=== PATIENT | male | born 2000 | race Caucasian/White ===

== ENCOUNTER 2021-04-05 09:29 | Emergency (ER) | payer OTHER, SELFPAY ==
--- NOTE | ~2021-04-05 | XR_ITS ---
EXAMINATION: XR CHEST CLINICAL INFORMATION: Shortness of breath. Flu like symptoms. COMPARISON: None TECHNIQUE: 2 views of the chest were obtained. FINDINGS: Cardiac silhouette is normal in size. Mildly hypoinflated lungs. There is no lobar consolidation. No pleural effusion or pneumothorax. No gross osseous abnormality. XR/XR chest 2V IMPRESSION: No acute pulmonary pathology.
--- NOTE | ~2021-04-05 | CT_ITS ---
EXAMINATION: CT SOFT TISSUE NECK WITH CONTRAST CLINICAL INFORMATION: Uvula swelling. Question peritonsillar abscess. COMPARISON: No relevant prior imaging. TECHNIQUE: Following the intravenous administration of 60 mL of Omnipaque 350 intravenous contrast, helical imaging was performed in the axial plane with generation of coronal and sagittal reformatted images. This CT examination was performed using dose optimization techniques as appropriate, variously including the following: *Automated exposure control *Adjustment of mA and/or kV according to patient size (this includes techniques or standardized protocols for targeted exams where dose is matched to indication/reason for exam; i.e. extremities or head) *Use of iterative reconstruction technique DLP: 789 mGy-cm FINDINGS: There is symmetric prominence of the palatine and nasopharyngeal tonsillar tissue. No discrete enhancing mucosal mass. Parapharyngeal and retromaxillary fat is preserved. Pillowcase Maker spaces are symmetric. The parotid and submandibular glands are normal. The tongue base and epiglottis are normal. Preepiglottic fat is preserved. Glottic and subglottic airways are widely patent. The thyroid gland is normal and the remainder of the visualized visceral soft tissues are normal. There are scattered symmetrically distributed albeit nonspecific cervical lymph nodes, none of which demonstrate worrisome enhancement characteristics to suggest capsular invasion or central necrosis. No mediastinal or axillary adenopathy is visualized within the [id number] of this examination. Lung apices are clear. Aortic arch apex is normal. Cervical carotid and vertebral arteries are patent. Internal jugular veins fill symmetrically. There is no acute osseous finding. No worrisome lytic or blastic osseous lesion. Limited visualization of intracranial anatomy reveals no abnormal finding. CT/CT soft tissue neck w con IMPRESSION: There is mild nonspecific prominence of the palatine and nasopharyngeal tonsillar tissue. A few scattered symmetrically prominent albeit nonspecific cervical lymph nodes are visualized within the neck, none of which demonstrate worrisome enhancement characteristics. No identifiable enhancing soft tissue mass or drainable collection.
[2021-04-05 10:33] LABS: Influenza A PCR NEGATIVE (Negative); Influenza B PCR NEGATIVE (Negative); Resp Syncy Virus RNA Qual PCR NEGATIVE (Negative); SARS COV2 PCR INHOUSE NEGATIVE (Negative)
[2021-04-05 10:38] VITALS: BP 140/80; PULSE 79; RESP 14; O2SAT 98; BMI 29.2
[2021-04-05] MEDS: Famotidine/PF 20 MG/2 ML VIAL IVPUSH (11:20)
[2021-04-05 11:21] LABS: MANUAL DIFF FLAG NO
[2021-04-05 11:23] LABS: Basophils Percent Auto 0.2 % (0-2); Eosinophils Absolute Auto 0.1 X10*3/uL (0.0-0.4); Eosinophils Percent Auto 1.2 % (0-4); Hematocrit 46.6 % (42-52); Hemoglobin 15.9 g/dl (14.0-18.0); Imm Gran Abs Auto 0.02 X10*3/uL (0.00-0.03); Imm Gran Pct Auto 0.2 % (0.0-0.4); Lymphocytes Absolute Auto 2.1 X10*3/uL (1.2-4.9); Lymphocytes Percent Auto 25.1 % (20-40); Mean Corpuscular HGB Conc 34.1 g/dl (31.0-36.0); Mean Corpuscular Hemoglobin 29.5 pg (27.0-33.0); Mean Corpuscular Volume 86.5 fL (80-98); Mean Platelet Volume 8.8 fL (9.4-12.4); Monocytes Absolute Auto 0.5 X10*3/uL (0.1-1.2); Monocytes Percent Auto 5.9 % (2-11); Neutrophils Absolute Auto 5.7 X10*3/uL (2.0-8.3); Neutrophils Percent Auto 67.4 % (45-73); Platelet Count 279 X10*3/uL (160-400); Red Blood Count 5.39 X10*6/uL (4.60-5.80); Red Cell Distribution Width 11.7 % (11.0-16.0); White Blood Count 8.5 X10*3/uL (4.8-10.8)
[2021-04-05] MEDS: diphenhydrAMINE HCL 50 MG/ML VIAL 25 MG IVPUSH (11:23)
[2021-04-05] MEDS: dexAMETHasone sod phosphate 10 MG/ML VIAL IVPUSH (11:25)
--- NOTE | 2021-04-05 11:28 | ED_ITS ---
HPI - General Adult General Chief complaint: Upper Respiratory Symptoms Stated complaint: SoB, Flu like Time Seen by Provider: 04/05/21 10:49 Source: patient Mode of arrival: ambulatory Limitations: no limitations History of Present Illness HPI narrative: Patient presents to the ED for sensation of uvula being swollen. Patient states he had throat pain last week that resolved within this morning woke up with his uvula swollen. Patient states having drooling. Patient denies any sore throat, neck swelling, chest pain, fever, chills, coughing, or shortness of breath. Related Data Previous Rx's Medication Instructions Recorded amoxicillin 875 mg-potassium 1 tab PO Q12H 10 Days #20 tab 04/05/21 clavulanate 125 mg tablet (Augmentin) dexamethasone 6 mg tablet 6 mg PO DAILY #7 tab 04/05/21 (Decadron) Allergies Allergy/AdvReac Type Severity Reaction Status Date / Time No Known Allergies Allergy Verified 04/05/21 10:50 Review of Systems Constitutional: Constitutional: Reports as per HPI and Reports no additional constitutional complaints Eyes: Eyes: Reports as per HPI and Reports no additional eye complaints ENT: Reports sore throat (Resolved) Comments: Uvular swelling. Drooling Respiratory: Respiratory: Reports as per HPI and Reports no additional respiratory complaints Gastrointestinal: Gastrointestinal: Reports as per HPI and Reports no additio nal gastrointestinal complaints Musculoskeletal: Musculoskeletal: Reports no additional musculoskeletal complaints and Reports as per HPI Neurologic: Reports system reviewed and no additional complaints, except as do cumented and Reports as per HPI Psychiatric: Psychiatric: Reports no additional psychiatric complaints [facility] Past Medical History Medical History (Updated 04/05/21 @ 15:14 by YAMILKA Alanis) No known health problems Social History Social History Alcohol intake: current Alcohol intake frequency: holidays/special occasions only Patient Tobacco Use Status: Never used Tobacco Use of substances other than those prescribed or required for medical reasons: No Advance Directives: No Advance Directives Information Provided: No Physical Exam Vital Signs: Vital Signs: Last Vital Signs Temp 98.8 F 04/05/21 12:33 Pulse 81 04/05/21 14:14 Resp 16 04/05/21 12:33 BP 112/60 04/05/21 14:14 Pulse Ox 99 04/05/21 14:14 Body Mass Index 29.2 Const: General: cooperative, healthy appearing, comfortable, no acute distress, well developed, alert, awake and Physically active Orientation/consciousness: patient oriented x3 HENMT: Other: Negative for signs of peritonsillar abscess Head: Yes normal to inspection, Yes No palpable skull fracture present, Yes normocephalic, Yes atraumatic and Yes abrasion Throat: Yes posterior oropharynx normal, Yes tonsils normal and Yes uvular edema (Uvula swollen. Patient mildly drooling/spitting) Eyes: General: appearance normal, both eyes and all related structures Neck: Neck: Yes normal visual inspection, Yes full ROM, Yes no lymphadenopathy, Yes no meningeal signs, Yes trachea midline, Yes supple and No tender Chest: Chest palpation & inspection: normal inspection of the chest and normal palpation of entire chest wall Resp: Effort & Inspection: normal respiratory effort and able to speak in complete sentences Auscultation: clear to auscultation bilaterally Cardio: Heart sounds: S1 normal heart sound present and S2 normal heart sound present GI: Inspection: Yes normal to inspection and No abdominal wall ecchymosis Palpation (GI): Soft to palpation, not firm, nontender, no guarding and not rigid : General: No CVA tenderness and Yes no CVA tenderness Back/Spine/Pelvis: Back: no CVA tenderness, No CVA tenderness and No back tenderness Skin: General skin exam: no rashes or lesions noted and elasticity normal Neuro: General: patient oriented x3, gait normal, no meningeal signs and CN's II-XI intact bilaterally Cranial nerves: Yes CN's II-XII intact bilaterally Extrem: General: Yes normal to inspection and Yes full ROM Right lower extremity: normal to inspection Psych: Appearance: grossly normal, well kempt and not disheveled Course Course Course Narrative: History physical exam indicates uvulitis. Negative For signs of peritonsillar abscess. Will order Decadron, Benadryl, and Pepcid. Paitent is mildy drooling and spitting will do next CT a check for retropharyngeal abscess. Reevaluation(s) Reevaluation #1: Patient labs are normal was sent for soft tissue neck CT. Patient given Zosyn for positive strep. Time: 11:17 Reevaluation #2: Soft tissue neck came back negative for any tonsillar abscesses or retropharyngeal abscess. Patient discharged antibiotics and Decadron. Patient states he feels better and no longer drooling and spitting. Patient tolerate p.o. Time: 15:12 Medical Decision Making MDM Narrative Medical decision making narrative: Pharyngitis Lab Data Result diagrams: 04/05/21 11:17 04/05/21 11:17 Labs: Lab Results 04/05/21 04/05/21 04/05/21 Range/Units 11:17 11:17 11:17 WBC 8.5 (4.8-10.8) X10*3/uL RBC 5.39 (4.60-5.80) X10*6/uL Hgb 15.9 (14.0-18.0) g/dl Hct 46.6 (42-52) % MCV 86.5 (80-98) fL MCH 29.5 (27.0-33.0) pg MCHC 34.1 (31.0-36.0) g/dl RDW 11.7 (11.0-16.0) % Plt Count 279 (160-400) X10*3/uL MPV 8.8 L (9.4-12.4) fL Immature Gran % (Auto) 0.2 (0.0-0.4) % Neut % (Auto) 67.4 (45-73) % Lymph % (Auto) 25.1 (20-40) % Haines % (Auto) 5.9 (2-11) % Eos % (Auto) 1.2 (0-4) % Baso % (Auto) 0.2 (0-2) % Lymph # (Auto) 2.1 (1.2-4.9) X10*3/uL Haines # (Auto) 0.5 (0.1-1.2) X10*3/uL Eos # (Auto) 0.1 (0.0-0.4) X10*3/uL Baso # (Auto) 0.0 (0.0-0.2) X10*3/uL Abs Immat Gran (auto) 0.02 (0.00-0.03) X10*3/uL Absolute Neuts (auto) 5.7 (2.0-8.3) X10*3/uL Absolute Nucleated RBC 0.000 (0.0-0.012) X10*3/uL Nucleated RBC % (auto) 0.0 (0.0-0.2) /100WBC Sodium 140 (135-145) mmol/L Potassium 3.7 (3.3-5.1) mmol/L Chloride 106 (96-108) mmol/L Carbon Dioxide 24 (22-29) mmol/L Anion Gap 14 (12-20) BUN 9 (9-16) mg/dL Creatinine 0.86 (0.5-1.4) mg/dL Estim Creat Clear Calc 128.6 Estimated GFR > 60 Random Glucose 104 (60-115) mg/dL Calcium 9.7 (8.4-10.2) mg/dL Total Bilirubin 0.3 (0.0-1.0) mg/dL AST 22 (5-37) U/L ALT 34 (0-40) U/L Alkaline Phosphatase 97 (39-117) U/L Total Protein 7.9 (6.5-8.0) g/dL Albumin 4.6 (3.5-5.0) g/dL Coronavirus (PCR) Influenza Type A (PCR) Influenza Type B (PCR) RSV RNA Qual (PCR) S. pyogenes GrpA MARY BETH Positive A (Negative) 04/05/21 04/05/21 Range/Units Unknown Unknown WBC (4.8-10.8) X10*3/uL RBC (4.60-5.80) X10*6/uL Hgb (14.0-18.0) g/dl Hct (42-52) % MCV (80-98) fL MCH (27.0-33.0) pg MCHC (31.0-36.0) g/dl RDW (11.0-16.0) % Plt Count (160-400) X10*3/uL MPV (9.4-12.4) fL Immature Gran % (Auto) (0.0-0.4) % Neut % (Auto) (45-73) % Lymph % (Auto) (20-40) % Haines % (Auto) (2-11) % Eos % (Auto) (0-4) % Baso % (Auto) (0-2) % Lymph # (Auto) (1.2-4.9) X10*3/uL Haines # (Auto) (0.1-1.2) X10*3/uL Eos # (Auto) (0.0-0.4) X10*3/uL Baso # (Auto) (0.0-0.2) X10*3/uL Abs Immat Gran (auto) (0.00-0.03) X10*3/uL Absolute Neuts (auto) (2.0-8.3) X10*3/uL Absolute Nucleated RBC (0.0-0.012) X10*3/uL Nucleated RBC % (auto) (0.0-0.2) /100WBC Sodium (135-145) mmol/L Potassium (3.3-5.1) mmol/L Chloride (96-108) mmol/L Carbon Dioxide (22-29) mmol/L Anion Gap (12-20) BUN (9-16) mg/dL Creatinine (0.5-1.4) mg/dL Estim Creat Clear Calc Estimated GFR Random Glucose (60-115) mg/dL Calcium (8.4-10.2) mg/dL Total Bilirubin (0.0-1.0) mg/dL AST (5-37) U/L ALT (0-40) U/L Alkaline Phosphatase (39-117) U/L Total Protein (6.5-8.0) g/dL Albumin (3.5-5.0) g/dL Coronavirus (PCR) Cancelled NEGATIVE Influenza Type A (PCR) Cancelled NEGATIVE Influenza Type B (PCR) Cancelled NEGATIVE RSV RNA Qual (PCR) Cancelled NEGATIVE S. pyogenes GrpA MARY BETH (Negative) Discharge Plan Discharge Clinical Impression: Pharyngitis Patient Disposition: Home, Self-Care Instructions: Pharyngitis (ED), Strep Throat (ED), Uvulitis (ED) Additional Instructions: If strep test came back positive which could be the cause of your uvulitis. Yes soft tissue neck CT scan came back negative for any abscesses. You be discharged with antibiotics and Decadron. Return to the ED for shortness of breath, sensation of throat closing, chest pain, inability to tolerate solid foods psych liquid, severe drooling, change in voice, any other concerning symptoms. Please follow up with PCP. Prescriptions: New amoxicillin-pot clavulanate [Augmentin] 875-125 mg tablet 1 tab PO Q12H 10 Days Qty: 20 RF: 0 dexamethasone [Decadron] 6 mg tablet 6 mg PO DAILY Qty: 7 RF: 0 Stand Alone Forms: Work/School Release Interventions: ED Discharge Assessment Last Done: 04/05/21 15:39 Discharge Date/Time: 04/05/21 15:40 Print Language: Cook Islander
[2021-04-05 11:36] LABS: Strep A Nucleic Acid Positive (Negative)
[2021-04-05 12:03] LABS: Alanine Aminotransferase 34 U/L (0-40); Albumin Level 4.6 g/dL (3.5-5.0); Alkaline Phosphatase 97 U/L (39-117); Anion Gap 14 (12-20); Aspartate Amino Transferase 22 U/L (5-37); Bilirubin Total 0.3 mg/dL (0.0-1.0); Blood Urea Nitrogen 9 mg/dL (9-16); Calcium 9.7 mg/dL (8.4-10.2); Carbon Dioxide 24 mmol/L (22-29); Chloride 106 mmol/L (96-108); Creatinine Clr Calc Pharmacy 128.6; Estimated Glomerular Filt Rate > 60; Glucose Random 104 mg/dL (60-115); Potassium 3.7 mmol/L (3.3-5.1); Sodium 140 mmol/L (135-145); Total Protein 7.9 g/dL (6.5-8.0)
[2021-04-05 12:33] VITALS: BP 101/48; PULSE 82; RESP 16; TEMP 37.1; O2SAT 100
[2021-04-05] MEDS: Piperacillin Sodium/Tazobactam 3.375 GM in 0.9 % Sodium Chloride 50 ML IV (12:35)
[2021-04-05] MEDS: iohexoL 350 MG/ML 100 ML INFUS..BTL 60 ML IV (14:03)
[2021-04-05 14:14] VITALS: BP 112/60; PULSE 81; O2SAT 99
== END 2021-04-05 15:40 | disposition home or self-care (01) ==
PROVIDERS: Physician Assistant; Emergency Provider Emergency Medicine Emergency Medical Services
DX: J02.9 Acute pharyngitis, unspecified (principal); Z20.822 Contact with and (suspected) exposure to COVID-19
CPT/HCPCS: 0241U; 36415; 70491; 71046; 80053; 85025; 87651; 96361; 96365; 96375; 99284; J1100; J1200; J2543; Q9967

== ENCOUNTER 2021-04-23 13:11 | Outpatient (REF) | payer OTHER, SELFPAY ==
[2021-04-23 14:11] LABS: COVID-19 Test Negative (Negative); IDNOW Serial# 08D9AD1C
== END 2021-04-23 13:12 | disposition home or self-care (01) ==
LOC: HO.LAB 13:11
PROVIDERS: Visit Provider Internal Medicine
DX: Z20.822 Contact with and (suspected) exposure to COVID-19 (principal)
CPT/HCPCS: 36415; 87635; C9803

== ENCOUNTER 2023-10-10 04:51 | Emergency (ER) | payer OTHER, SELFPAY ==
--- NOTE | ~2023-10-10 | CT_ITS ---
EXAMINATION: CT SOFT TISSUE NECK WITH CONTRAST CLINICAL INFORMATION: Localized angioedema. COMPARISON: Neck CT from 04/05/2021 TECHNIQUE: Following the intravenous administration of 100 mL of Omnipaque 350 intravenous contrast, helical imaging was performed in the axial plane with generation of coronal and sagittal reformatted images. This CT examination was performed using dose optimization techniques as appropriate, variously including the following: *Automated exposure control *Adjustment of mA and/or kV according to patient size (this includes techniques or standardized protocols for targeted exams where dose is matched to indication/reason for exam; i.e. extremities or head) *Use of iterative reconstruction technique DLP: 756 mGy-cm FINDINGS: The parotid and operations manager/coordinator spaces are normal. The submandibular glands and thyroid gland are normal. No evidence of soft tissue mass or focal inflammatory change in the deep compartments of the neck. The nasopharynx, oral cavity and tongue base are unremarkable. There appears to be chronic prominence of the patella teen and nasopharyngeal tonsillar tissue without focal lesion. No peritonsillar abscess. No pathologic enhancement within the oral cavity or pharyngeal mucosal space. The parapharyngeal fat planes are preserved. The hypopharynx, epiglottis, and preepiglottic space are normal. Laryngeal structures normal. There is edema of subcutaneous tissue; this is predominantly seen anterior to the mandible. No superficial soft tissue abscess. No fluid collections in the deep soft tissues. The visualized proximal esophagus is normal. There are level 2A lymph nodes of the right and left neck that are chronically, mildly enlarged, measures up to 1.2 cm short axis dimension and are not significantly changed in size compared to 04/05/2021. Aortic arch is normal. The carotid and vertebral arteries opacify normally. The visualized intracranial structures are normal. Dental caries and interval worsening periapical lucency and anterior cortical bone erosion around roots of right mandibular first molar tooth. No evidence of any rim-enhancing perimandibular collection. Mild mucosal thickening of some of the ethmoid air cells. Also, there is mucosal thickening of inferior maxillary sinuses (right more so than left). No air-fluid levels within paranasal sinuses. The mastoid air cells are well aerated. The orbital baugh, globes and retrobulbar soft tissues are intact. Cervical vertebra have normal density, height and alignment. The disc spaces are maintained. No perivertebral soft tissue swelling. Lung apices are clear. CT/CT soft tissue neck w IV con IMPRESSION: * Dental caries and interval worsening of periapical lucency of the right mandibular first molar tooth. * No evidence of a perimandibular soft tissue abscess. * There is mild edema of subcutaneous tissues of the face; this is predominantly seen anterior to the mandible. * Chronic mild nonspecific enlargement of level 2A lymph nodes. Also, there is chronic nonspecific prominence of tonsillar tissue, not significantly changed compared to 04/05/2021.
--- NOTE | 2023-10-10 05:07 | ED_ITS ---
HPI - URI/Sore Throat General Chief Complaint: Allergic Reaction Stated Complaint: swelling in throat Time Seen by Provider: 10/10/23 05:07 Mode of arrival: ambulatory Limitations: no limitations History of Present Illness HPI Narrative: Patient noticed swelling in his throat with difficult to swallow since last night no fever no chills no cough or shortness of breath voice normal, no known allergies no history of allergic reaction the past no itching or skin rash Related Data Previous Rx's Medication Instructions Recorded amoxicillin 875 mg-potassium 1 tab PO Q12H 10 days #20 tabs 04/05/21 clavulanate 125 mg tablet (Augmentin) dexamethasone 6 mg tablet 6 mg PO DAILY #7 tabs 04/05/21 (Decadron) Allergies Allergy/AdvReac Type Severity Reaction Status Date / Time No Known Allergies Allergy Verified 10/10/23 05:07 Review of Systems Review of Systems: Yes all other systems are reviewed and are negative [facility] Past Medical History Medical History No known health problems Social History Social History Unable to assess alcohol history related to: Unknown Alcohol intake: current Alcohol intake frequency: holidays/special occasions only Patient Tobacco Use Status: Never used Tobacco Use of substances other than those prescribed or required for medical reasons: Unknown Advance Directives: No Advance Directives Information Provided: No Physical Exam Vital Signs: Vital Signs: Last Vital Signs Temp 98.2 F 10/10/23 06:19 Pulse 75 10/10/23 06:19 Resp 18 10/10/23 06:19 BP 116/60 10/10/23 06:19 Pulse Ox 97 10/10/23 06:19 O2 Del Method Room Air 10/10/23 06:19 BMI result Body Mass Index 32.1 Appearance: Alert. Oriented X3. No acute distress. Eyes: PERRLA, ENT: Pharynx normal. Oral Mucosa moist swelling of the uvula Neck: Normal inspection. Neck supple. No stridor CVS: Normal heart rate and rhythm. Pulses normal. Respiratory: No respiratory distress. Equal air entry bilateral, no wheezing/rales/rhonchi Abdomen: Soft and nontender. Bowel sounds are present, n Skin: Skin warm and dry. Normal skin color. Normal skin turgor. Neuro: Oriented X 3. Medications Administered Discontinued Medications Generic Name Dose Route Start Last Admin Trade Name Ace PRN Reason Stop Dose Admin Dexamethasone Sodium Phosphate 10 mg 10/10/23 05:09 10/10/23 05:18 Dexamethasone Sod Phosphate 10 Mg/Ml Vial IVPUSH 10/10/23 05:10 10 mg ONCE ONE Administration Diphenhydramine HCl 50 mg 10/10/23 05:09 10/10/23 05:17 Diphenhydramine Hcl 50 Mg/Ml Vial IVPUSH 10/10/23 05:10 50 mg ONCE ONE Administration Epinephrine 0.3 mg 10/10/23 05:09 10/10/23 05:21 Epinephrine 1 Mg/Ml Vial IM 10/10/23 05:10 0.3 mg STAT STA Administration Famotidine 20 mg 10/10/23 06:29 10/10/23 06:58 Famotidine/Pf 20 Mg/2 Ml Vial IVPUSH 10/10/23 06:30 20 mg ONCE ONE Administration Iohexol 60 ml 10/10/23 06:53 10/10/23 06:54 Iohexol 350 Mg/Ml 100 Ml Infus..Btl IV 10/10/23 06:54 60 ml ONCE ONE Administration Medical Decision Making Medical Decision Making [facility] Narrative: Patient with uvula angioedema strep is negative CT scan report is pending patient feeling better signed out to Dr. Samayoa pending final disposition Differential Diagnosis Differential Diagnoses: The differential diagnosis associated with the presentation includes Localized angioedema/epiglottitis/allergic reaction Lab Data [facility] Lab Attestation statement: I reviewed the patient's lab results. Labs: Lab Results 10/10/23 Range/Units 05:28 S. pyogenes GrpA MARY BETH Negative (Negative) Independent Interpretation I performed an independent interpretation of an: CT Scan Discharge Plan Discharge Clinical Impression: Angioedema Patient Disposition: Still a Patient Prescriptions: No Action amoxicillin-pot clavulanate [Augmentin] 875-125 mg tablet 1 tab PO Q12H 10 Days Qty: 20 0RF dexamethasone [Decadron] 6 mg tablet 6 mg PO DAILY Qty: 7 0RF
--- NOTE | 2023-10-10 05:08 | PC.NURSE ---
at bedside for primary eval.
[2023-10-10 05:09] VITALS: BP 123/66; PULSE 77; RESP 16; TEMP 37.2; O2SAT 97; BMI 32.1
[2023-10-10] MEDS: diphenhydrAMINE HCL 50 MG/ML VIAL IVPUSH (05:17)
[2023-10-10] MEDS: dexAMETHasone sod phosphate 10 MG/ML VIAL IVPUSH (05:18)
[2023-10-10 05:21] VITALS: BP 111/60; PULSE 74
[2023-10-10] MEDS: EPINEPHrine 1 MG/ML VIAL 0.3 MG IM (05:21)
[2023-10-10 05:30] VITALS: BP 108/47; PULSE 70; RESP 15; TEMP 36.8; O2SAT 98
--- NOTE | 2023-10-10 05:30 | PC.NURSE ---
IV established, pt medicated per OCT. instructional technology specialist at bedside for strep swab. Pt resting comfortably in bed, lights dim for comfort, call zapata within reach. Continue to monitor.
--- NOTE | 2023-10-10 05:31 | MHC.EDTECH ---
This pct just assumed care of Pt ,Vitals taken strep swab collected and sent to lab ,Patient was hooked up to product marketing manager ,Patient call zapata within Pt reach .
[2023-10-10 05:39] LABS: IDNOW Serial# 6674DD1D; Strep A Nucleic Acid Negative (Negative)
--- NOTE | 2023-10-10 06:11 | PC.NURSE ---
MD at bedside for reeval. Minimal change in pt condition. Plan for CT.
[2023-10-10 06:19] VITALS: BP 116/60; PULSE 75; RESP 18; TEMP 36.8; O2SAT 97
--- NOTE | 2023-10-10 06:53 | PC.NURSE ---
Returns from CT.
[2023-10-10] MEDS: iohexoL 350 MG/ML 100 ML INFUS..BTL 60 ML IV (06:54)
[2023-10-10] MEDS: Famotidine/PF 20 MG/2 ML VIAL IVPUSH (06:58)
--- NOTE | 2023-10-10 06:58 | PC.NURSE ---
Returns from CT, medicated per OCT. No improvement in swelling of airway at this time. aware.
--- NOTE | 2023-10-10 07:09 | PC.NURSE ---
Labs obtained by [employer].
[2023-10-10 07:16] LABS: MANUAL DIFF FLAG NO
--- NOTE | 2023-10-10 07:23 | PC.NURSE ---
assumed care of this patient at 0700am, alert and orientated x 4. He is in no acute resp distress and respirations are even and unlabored. he does feel that he is better now and able to speak which was an issue earlier.
[2023-10-10 07:29] LABS: Anion Gap 9 (12-20); Blood Urea Nitrogen 12 mg/dL (9-16); Calcium 9.4 mg/dL (8.4-10.2); Carbon Dioxide 24 mmol/L (22-29); Chloride 107 mmol/L (96-108); Creatinine Clr Calc Pharmacy 141.1; Estimated Glomerular Filt Rate > 60; Glucose Random 99 mg/dL (60-115); Potassium 4.4 mmol/L (3.3-5.1); Sodium 136 mmol/L (135-145)
[2023-10-10 07:30] LABS: Basophils Percent Auto 0.3 % (0-2); Eosinophils Absolute Auto 0.1 X10*3/uL (0.0-0.4); Eosinophils Percent Auto 1.2 % (0-4); Hematocrit 46.3 % (42.0-52.0); Hemoglobin 15.7 g/dl (14.0-18.0); Imm Gran Abs Auto 0.02 X10*3/uL (0.00-0.03); Imm Gran Pct Auto 0.3 % (0.0-0.4); Lymphocytes Absolute Auto 1.1 X10*3/uL (1.2-4.9); Lymphocytes Percent Auto 18.6 % (20-40); Mean Corpuscular HGB Conc 33.9 g/dl (31.0-36.0); Mean Corpuscular Hemoglobin 29.3 pg (27.0-33.0); Mean Corpuscular Volume 86.5 fL (80.0-98.0); Mean Platelet Volume 9.3 fL (9.4-12.4); Monocytes Absolute Auto 0.2 X10*3/uL (0.1-1.2); Monocytes Percent Auto 3.7 % (2-11); Neutrophils Absolute Auto 4.4 x10*3/uL (2.0-8.3); Neutrophils Percent Auto 75.9 % (45-73); Platelet Count 255 X10*3/uL (160-400); Red Blood Count 5.35 X10*6/uL (4.60-5.80); Red Cell Distribution Width 11.8 % (11.0-16.0); White Blood Count 5.7 X10*3/uL (4.8-10.8)
[2023-10-10 08:44] VITALS: BP 108/63; PULSE 72; RESP 12; TEMP 36.4; O2SAT 98
== END 2023-10-10 09:03 | disposition home or self-care (01) ==
PROVIDERS: Internal Medicine; Emergency Provider Emergency Medicine
DX: L50.0 Allergic urticaria (principal); J02.9 Acute pharyngitis, unspecified; M54.2 Cervicalgia; Z79.899 Other long term (current) drug therapy
CPT/HCPCS: 36415; 70491; 80048; 85025; 87651; 96372; 96374; 96375; 99284; J0171; J1100; J1200; Q9967